=== PATIENT | female | born 1990 | race American Indian/Alaskan Native ===

== ENCOUNTER 2018-11-26 16:12 | Emergency (ER) | payer SELFPAY ==
[2018-11-26] MEDS ORDERED: PEPCID IV ONE ×2 (16:55→16:56)
[2018-11-26] MEDS ORDERED: SOLU-Medrol ONE (16:56)
[2018-11-26] MEDS ORDERED: NACL 0.9% 1000 ML 1,000 ML IV ONE (16:56)
[2018-11-26] MEDS ORDERED: NACL 0.9% 1000 ML 1,000 ML ONE (16:56)
[2018-11-26] MEDS ORDERED: SOLU-Medrol IV ONE (16:56)
[2018-11-26] MEDS ORDERED: BENADRYL IV ONE (16:56)
[2018-11-26] MEDS ORDERED: BENADRYL ONE (16:58)
--- NOTE | 2018-11-26 17:01 | Emergency Department Report ---
ED Allergic Reaction HPI - General Chief complaint: Allergic Reaction Stated complaint: ALLERGIC REACTION/DIZZINESS Time Seen by Provider: 11/26/18 16:51 Source: patient Mode of arrival: Ambulatory Limitations: No Limitations - History of Present Illness Initial Comments: 28-year-old female presents to ED with allergic reaction. Patient cooked packaged ramen noodles at home for the first time, developed itching and rash, facial swelling after eating it. No history of allergic reactions in the past. MD Complaint: allergic reaction -: hour(s) (1) Exposure: food Symptoms: rash, itching, facial swelling. denies: difficulty breathing, nausea, vomiting Severity: moderate Treatment Prior to Arrival: none - Related Data Previous Rx's Medication Instructions Recorded Last Taken Type predniSONE [Deltasone] 50 mg PO QDAY #5 tab 11/26/18 Unknown Rx Allergies Allergy/AdvReac Type Severity Reaction Status Date / Time No Known Allergies Allergy Unverified 11/26/18 16:17 ED Review of Systems ROS: Stated complaint: ALLERGIC REACTION/DIZZINESS Other details as noted in HPI Comment: All other systems reviewed and negative ENT: denies: throat pain Respiratory: denies: shortness of breath, wheezing Cardiovascular: denies: chest pain Gastrointestinal: denies: nausea, vomiting Skin: rash ED Past Medical Hx - Past Medical History Previous Medical History?: No - Surgical History Past Surgical History?: No - Medications Home Medications: Home Medications Medication Instructions Recorded Confirmed Last Taken Type predniSONE [Deltasone] 50 mg PO QDAY #5 tab 11/26/18 Unknown Rx ED Physical Exam - General Limitations: No Limitations General appearance: alert, in no apparent distress - Head Head exam: Present: atraumatic, normocephalic - Eye Eye exam: Present: normal appearance, PERRL, EOMI - ENT ENT exam: Present: mucous membranes moist - Neck Neck exam: Present: normal inspection - Respiratory Respiratory exam: Present: normal lung sounds bilaterally. Absent: respiratory distress, wheezes, stridor - Cardiovascular Cardiovascular Exam: Present: regular rate, normal rhythm - GI/Abdominal GI/Abdominal exam: Present: soft. Absent: distended, tenderness - Extremities Exam Extremities exam: Present: normal inspection - Neurological Exam Neurological exam: Present: alert, oriented X3 - Psychiatric Psychiatric exam: Present: normal affect, normal mood - Skin Skin exam: Present: rash (urticarial rash to forearms) ED Course Vital Signs 11/26/18 11/26/18 17:00 17:29 Pulse Rate 73 80 Respiratory 14 18 Rate Blood Pressure 90/53 Blood Pressure 114/73 [Right] O2 Sat by Pulse 100 98 Oximetry ED Medical Decision Making - Medical Decision Making - allergic reaction to ramen noodles - pt had significant reaction to benadryl 50 mg, making her significantly drowsy, however pt was still responsive - following observation, pt's mental status improved, rash improved - pt anbulatory w/o assistance, feeling much better - will d/c home - return precautions given - outpt f/u advised - Differential Diagnosis food allerygy, urticaria Critical care attestation.: If time is entered above; I have spent that time in minutes in the direct care of this critically ill patient, excluding procedure time. ED Disposition Clinical Impression: Allergic reaction Disposition: DC-01 TO HOME OR SELFCARE Is pt being admited?: No Condition: Stable Instructions: Food Allergy (ED) Prescriptions: predniSONE [Deltasone] 50 mg PO QDAY #5 tab Referrals: OSIEL HO MD [Primary Care Provider] - 3-5 Days Time of Disposition: 19:24
[2018-11-26 17:30] VITALS: BP 114/73
== END 2018-11-26 20:41 | disposition home or self-care (01) ==
LOC: ED 16:12
DX: T78.40XA Allergy, unspecified, initial encounter (principal); X58.XXXA Exposure to other specified factors, initial encounter
CPT/HCPCS: 96374; 96375; 99282; J1200; J2930; J7030